=== PATIENT | female | born 1965 | race Caucasian/White ===

== ENCOUNTER 2022-07-25 05:53 | Day surgery (SDC) | payer BC, SELFPAY ==
[2022-07-25] VITALS (12 sets, daily range): BP systolic 89–132; BP diastolic 50–68; PULSE 51–70; RESP 12–18; TEMP 36.2–36.6; O2SAT 100; BMI 18.3
[2022-07-25] MEDS: LACTATED RINGERS 1000 ML 1,000 ML 100 ML IV (06:17)
[2022-07-25] MEDS: SODIUM CHLORIDE 0.9 % (FLUSH) 10 ML SYRINGE IVF (06:17)
--- NOTE | 2022-07-25 06:25 | SUR.PREOP ---
Patient provided home covid negative results to RN.
[2022-07-25] MEDS: BUPIVACAINE 0.5% 30 ML 10 ML INJECTION (07:41)
[2022-07-25] MEDS: BUPIVACAINE LIPOSOME 133 MG/10 ML INJ INFILTRATI (07:41)
--- NOTE | 2022-07-25 08:04 | P.GSOP_ITS ---
Operative Note Date of procedure: 07/25/22 Pre-op diagnosis: 1. Symptomatic enlarged external and internal hemorrhoids. Post-op diagnosis: Same Type of Procedure: 1. Two quadrant hemorrhoidectomy. Indications: 57-year-old female was seen in clinic for evaluation of enlarged hemorrhoids that she developed a long time ago when she was with her children. Pat ient states that she has episodes of hemorrhoidal tissue enlarging and bleeding. This usually spontaneously improved. She noticed that the tissue present outside of her anus was larger than normal. This was more prominent when she was standing for prolonged periods of time or after bowel movements. She also felt the hemorrhoidal tissue coming out from her anus at random times. On clinical exam patient had an enlarged external hemorrhoid with enlarged internal hemorrhoid right posterior laterally as well as redundant hemorrhoidal skin tag right posterior laterally. Given patient's clinical history and her physical exam, a 1 quadrant hemorrhoidectomy was recommended. The procedure was discussed in detail. The risks associated procedure including infection, bleeding, temporary incontinence, and possible need to have additional procedures were all discussed with the patient, and she agreed to proceed. Procedure Description: After discussing the risks and benefits of the procedure, the patient signed informed consent.? The patient was brought to the operating room. Spinal anesthesia was administered. Patient was placed prone on the operating table with all pressure points padded.? The operative site was then prepped and draped in the usual sterile fashion.? A time-out was then performed. External examination, digital rectal examination, and anoscopic examination were all done and revealed significantly redundant internal and external hemorrhoidal tissue right posterior laterally and redundant hemorrhoidal skin tag right anterior laterally associated with enlarged internal hemorrhoid. I first started with the right posterior lateral hemorrhoidectomy. An elliptical incision was made with a needle tip electrocautery from the anoderm up into the anal canal just above the dentate line. Careful dissection of the hemorrhoid complex was done in the plane between the internal anal sphincter and the submucosal vascular plexus up to just above the dentate line in each quadrant described above. Having established the proper plane, the hemorrhoidal tissue was then excised with the Ligasure device and sent to Pathology for analysis. This hemorrhoidal tissue was thickened and I elected to send to pathology. Care was taken to preserve mucosa for a tension-free closure. The internal sphincter fibers were visualized at the base of the wound and were intact. The wound was closed in a running locked manner starting at the apex (proximal aspect of elliptical excision) with 3-0 chromic suture, coming out to the anoderm and then running back up in a simple fashion and tying down at the apex. Hemostasis was excellent. Given the enlarged nature of the right anterior lateral hemorrhoidal skin tag associated with enlarged internal hemorrhoid tissue, I elected to proceed with the second quadrant hemorrhoidectomy. This was done similarly as the first hemorrhoidectomy. The incision was closed with chromic. Pressure was held for hemostasis. A mixture of Marcaine and Exparel was then injected for bilateral pudendal nerve block and around the anus. ? Sterile dressings were then applied. ? The patient was then woken and transported to the recovery area in stable condition. ? The patient tolerated the procedure well. Findings: Enlarged internal and external hemorrhoids, 2 quadrant hemorrhoidectomy was performed. Anesthesia: MAC and spinal Surgeon: Ritu Hatfield MD Estimated blood loss (mL): 5 Additional Specimen Information: 1. Right posterior lateral hemorrhoid. Condition: stable Disposition: PACU
--- NOTE | 2022-07-25 08:09 | W.ANESCHARGE ---
Anesthesia Charges Start Date/Time Anesthesia Start Date: 07/25/22 Anesthesia Start Time: 07:21 Stop Date/Time Anesthesia Stop Date: 07/25/22 Anesthesia Stop Time: 08:09
--- NOTE | 2022-07-25 08:26 | W.ANESCHARGE ---
Anesthesia Charges Start Date/Time Anesthesia Start Date: 07/25/22 Anesthesia Start Time: 07:21 Stop Date/Time Anesthesia Stop Date: 07/25/22 Anesthesia Stop Time: 08:09
[2022-07-25] MEDS: ONDANSETRON 2 MG/ML inj 4 MG IVP (08:30)
[2022-07-25] MEDS: LACTATED RINGERS 1000 ML 1,000 ML 35 ML IV (08:43)
== END 2022-07-25 09:38 | disposition home or self-care (01) ==
PROVIDERS: PCP Physician Assistant Medical; Visit Provider Surgery
PROC: (CPT 46260; principal; 2022-07-25 07:15)
DX: K64.8 Other hemorrhoids (principal); K64.4 Residual hemorrhoidal skin tags
CPT/HCPCS: 46260; 00902; 88304; C9290; J1100; J2250; J2370; J2405; J2704; J3010; J3490; J7120